=== PATIENT | male | born 1960 | race African-American/Black ===

== ENCOUNTER 2022-03-29 15:32 | Emergency (ER) | payer BC, MEDICARE, SELFPAY ==
[2022-03-29 15:45] VITALS: BP 174/92; PULSE 83; RESP 16; TEMP 37.1; O2SAT 98
--- NOTE | 2022-03-29 15:46 | ED.URI ---
HPI - URI/Sore Throat General Chief Complaint: Upper Respiratory Infection Stated Complaint: wheezing Time Seen by Provider: 03/29/22 15:46 Source: patient Mode of arrival: ambulatory Limitations: no limitations History of Present Illness HPI Narrative: 61-year-old male with history of asthma presents with complaint of wheezing for 3 days. Reports that he had a recent cold last week. States that symptoms have resolved. Has been using his inhalers as prescribed. Today gave himself a breathing treatment prior to arrival. Denies shortness of breath and chest tightness. States just can hear myself wheezing . Patient is talkative and well-appearing. Speaking in full sentences. All systems reviewed and negative except as noted above. Related Data Home Medications Medication Instructions Recorded Confirmed albuterol 03/29/22 amlodipine 03/29/22 Allergies Allergy/AdvReac Type Severity Reaction Status Date / Time aspirin [From Marciano Aspirin] Allergy Unresponsiv Verified 03/29/22 15:43 e codeine Allergy Wheezing Verified 03/29/22 15:43 Review of Systems Review of Systems: CONSTITUTIONAL: Denies fever, chills, or sweats. EYES: Denies visual changes, redness, or discharge. ENT: Denies rhinorrhea, congestion, sore throat, or otalgia. CARDIOVASCULAR: Denies chest pain, palpitations, or edema. RESPIRATORY: Denies cough or dyspnea. Reports wheezing. GASTROINTESTINAL: Denies abdominal pain, nausea, vomiting, or diarrhea. GENITOURINARY: Denies dysuria or hematuria. SKIN: Denies rash or itching. MUSCULOSKELETAL: Denies back pain, joint pain, or myalgia. NEUROLOGIC: Denies headache, numbness, or weakness. PSYCHIATRIC: Denies anxiety or depression. All other systems reviewed are negative, except as documented in HPI. [facility] Comments At time of signature, agree with nursing past medical, surgical, social and family history. There is no relevant family history pertinent to the presenting complaint. Exam Narrative: GENERAL: This is a well-nourished, well-developed patient, in no apparent distress. HEAD: normocephalic, atraumatic. EYES: PERRL. Sclera clear/white. Vision is grossly intact. EARS: External ears normal, auditory canals clear and without drainage, TMs normal without perforation. Hearing grossly intact. NOSE: External nose normal with no obvious nasal discharge, nares without redness, no rhinorrhea. THROAT: Mucous membranes moist, posterior pharynx clear. NECK: Neck supple, non-tender without lymphadenopathy, masses or thyromegaly. CARDIOVASCULAR: Regular rate and rhythm without murmurs, gallops, or rubs. RESPIRATORY: Mild expiratory wheeze to mid and lower aspect of bilateral lung payton. Otherwise clear lung signs. SKIN: warm, Dry, intact with no suspicious lesions or rash, good texture and turgor. NEURO: awake, alert, and oriented to person, place and time. There were no obvious focal neurologic abnormalities. EXTREMITIES: No joint tenderness, effusion, or edema noted. Course Course Level of Care: Express Care Visit Vital Signs Vital signs: Vital Signs Temperature 37.1 C 03/29/22 15:45 Pulse Rate 83 03/29/22 15:45 Respiratory Rate 16 03/29/22 15:45 Blood Pressure 174/92 H 03/29/22 15:45 Pulse Oximetry 98 03/29/22 15:45 Temperature 37.1 C 03/29/22 15:45 Pulse Rate 83 03/29/22 15:45 Respiratory Rate 16 03/29/22 15:45 Blood Pressure 174/92 H 03/29/22 15:45 Pulse Oximetry 98 03/29/22 15:45 Reviewed MDM - URI/Sore Throat MDM Narrative Medical decision making narrative: Patient is aware of diagnosis, understands and agrees to treatment plan. Anticipatory guidance given. Patient agrees to follow-up as directed and is aware of reasons to seek care at the emergency department. Portions of this record may have been created with voice recognition software Patient well-appearing. Has inhalers and neb treatments prescribed from PCP. Needed Combivent inhaler refille
== END 2022-03-29 16:04 | disposition home or self-care (01) ==
PROVIDERS: Emergency Provider Nurse Practitioner Family
DX: J45.901 Unspecified asthma with (acute) exacerbation (principal); I10 Essential (primary) hypertension
CPT/HCPCS: 99213; G0463

== ENCOUNTER 2022-04-06 19:42 | Emergency (ER) | payer BC, MEDICARE, SELFPAY ==
--- NOTE | 2022-04-06 19:49 | ED.URI ---
HPI - URI/Sore Throat General Chief Complaint: Upper Respiratory Infection Stated Complaint: congestion, wheezing Time Seen by Provider: 04/06/22 19:52 Source: patient, RN notes reviewed and old records reviewed Mode of arrival: ambulatory Limitations: no limitations History of Present Illness HPI Narrative: 61-year-old male presents to the [facility] with complaints of congestion and wheezing that started this afternoon. Patient states that he was much better from last week's visit but after using a nose spray and exposed to viruses developed wheezing this afternoon patient originally said that he was out of his inhaler and had not used it in a couple of days. Patient then stated he used it 4 times a day, pulls it out of his pocket and has 68 puffs left. Was seen for the same on March 29, 8 days ago, did not follow-up with primary care Denies any fevers, chest pain, abdominal pain. Related Data Home Medications Medication Instructions Recorded Confirmed albuterol 03/29/22 amlodipine 03/29/22 Allergies Allergy/AdvReac Type Severity Reaction Status Date / Time aspirin [From Marciano Aspirin] Allergy Unresponsiv Verified 04/06/22 20:13 e codeine Allergy Wheezing Verified 04/06/22 20:13 Review of Systems Review of Systems: All systems reviewed & are unremarkable except as noted in HPI and below Constitutional: Constitutional: Reports no additional constitutional complaints, Denies chills and Denies fever(s) Eyes: Eyes: Reports no additional eye complaints ENT: Reports system reviewed and no additional complaints, except as documented Cardiovascular: Cardiovascular: Reports no additional cardiovascular complaints Respiratory: Respiratory: Reports as per HPI, Reports chest congestion, Reports cough (Clear productive), Denies dyspnea and Reports wheezing Gastrointestinal: Gastrointestinal: Reports no additional gastrointestinal complaints Musculoskeletal: Musculoskeletal: Reports no additional musculoskeletal complaints Integumentary/Breasts: Skin/Breast: Reports system reviewed and no additional complaints, except as docu Neurologic: Reports system reviewed and no additional complaints, except as documented Psychiatric: Psychiatric: Reports no additional psychiatric complaints Allergic/Immunologic: Allergic/Immunologic: Reports no additional allergic/immunologic complaints [facility] Past Medical History Medical History (Updated 04/06/22 @ 20:15 by Lyn Guerin APRN) Asthma Hypertension Surgical History Surgical History (Updated 04/06/22 @ 20:13 by Lyn Guerin APRN) No history of previous surgery Social History Social History (Updated 04/06/22 @ 20:13 by Lyn Guerin APRN) Gender identity (if verbalized by the patient): Male Comments At the time of my signature, I reviewed and agree with the nursing past medical, surgical, social, and family history. There is no relevant family history pertinent to the patient complaint. Exam Const: General: healthy appearing, no acute distress and alert Nutritional Appearance: well nourished Orientation/consciousness: patient oriented x3 Limitations: no limitations HENMT: Head: normal to inspection Ears: external ears normal, TM's normal bilaterally and EAC's normal Throat: posterior oropharynx normal and uvula midline Eyes: General: appearance normal, both eyes and all related structures Pupils: Equal, round and reactive pupils present Neck: Neck: normal visual inspection, no lymphadenopathy and no meningeal signs Chest: Chest palpation & inspection: normal inspection of the chest Resp: Effort & Inspection: normal respiratory effort and no use of accessory muscles Auscultation: clear to auscultation bilaterally, no crackles, no rales, no rhonchi and wheezes expiratory wheezes, left lower and right lower Cardio: Rate: regular rate Rhythm: regular rhythm Back/Spine/Pelvis: Cervical Spine: normal cervical lordosis Thoracic/Lumba
[2022-04-06 19:51] VITALS: BP 156/92; PULSE 86; RESP 16; TEMP 37.2; O2SAT 100
== END 2022-04-06 20:09 | disposition home or self-care (01) ==
PROVIDERS: Emergency Provider Nurse Practitioner
DX: J45.909 Unspecified asthma, uncomplicated (principal); I10 Essential (primary) hypertension
CPT/HCPCS: 99213; G0463

== ENCOUNTER 2022-06-03 10:00 | Emergency (ER) | payer BC, MEDICARE, SELFPAY ==
[2022-06-03 10:09] VITALS: BP 164/98; PULSE 82; RESP 16; TEMP 36.2; O2SAT 97
--- NOTE | 2022-06-03 10:09 | ED.URI ---
HPI - URI/Sore Throat General Chief Complaint: Upper Respiratory Infection Stated Complaint: WHEEZING Source: patient Mode of arrival: ambulatory Limitations: no limitations History of Present Illness HPI Narrative: 61 y/o male with history of asthma presented for c/o wheezing for 3 days after having 'a virus.' Endorses sinus pressure and congestion with post nasal drainage and mild nausea. Denies sob, cough, vomiting, fatigue, fever or chills. Taking nuha and nasal spray occasionally. Says he uses albuterol and nebulizer machine as needed for symptoms. Related Data Home Medications Medication Instructions Recorded Confirmed amlodipine 10 mg tablet 10 mg PO DAILY 06/03/22 06/03/22 Allergies Allergy/AdvReac Type Severity Reaction Status Date / Time aspirin [From [place] Aspirin] Allergy Unresponsiv Verified 06/03/22 10:11 e codeine Allergy Wheezing Verified 06/03/22 10:11 Review of Systems Review of Systems: CONSTITUTIONAL: Denies body aches, fever, chills, or sweats. EYES: Denies visual changes, redness, or discharge. ENT: Denies sore throat, or otalgia. CARDIOVASCULAR: Denies chest pain, palpitations, or edema. RESPIRATORY: Reports wheezing. GASTROINTESTINAL: Denies abdominal pain, vomiting, or diarrhea. GENITOURINARY: Denies dysuria or hematuria. SKIN: Denies rash, itching, or wounds. MUSCULOSKELETAL: Denies back pain, joint pain, or myalgia. NEUROLOGIC: Denies headache, numbness, tingling, or weakness. All systems reviewed & are unremarkable except as noted in HPI and below PMFSH Past Medical History Medical History Asthma Hypertension Surgical History Surgical History No history of previous surgery Social History Social History Gender identity (if verbalized by the patient): Male Comments At time of signature, I have reviewed and agree with nursing past medical, surgical, social and family history unless otherwise noted. Please see nursing chart for further information. There is no relevant family history pertinent to the presenting complaint Exam Narrative: GENERAL: Well-appearing, in no acute distress. EYES: EOMI. No redness or drainage. Conjunctivae normal. ENT: Mucous membranes pink and moist. No rhinorrhea. TMs normal bilaterally. Throat normal. Uvula midline. CHEST: No respiratory distress. Expiratory Wheezing to all payton. HEART: Regular rate and rhythm. No murmur appreciated. ABDOMEN: Soft, nontender, nondistended, normal active bowel sounds. SKIN: Warm, dry, no rash. Capillary refill normal. Normal skin turgor. NEURO: Alert and oriented x3. Course Course Emergency Course: Patient is aware of diagnosis, understands and agrees to treatment plan. Anticipatory guidance given. Patient agrees to follow-up as directed and is aware of reasons to seek care at the emergency department. Portions of this record may have been created with voice recognition software Level of Care: Express Care Visit MDM - URI/Sore Throat MDM Narrative Medical decision making narrative: Patient states he has plenty of puffs left on the albuterol inhaler and medication for neb machine. No distress. VSS. Exp wheezing on exam, will give Rx steroid. Advised supportive measures and signs/symptoms to go to the ER. Pt is appropriate for outpt treatment and f/u. Differential Diagnosis Differential diagnosis: Likely upper respiratory infection, sinusitis, viral infection, bronchitis and other (copd, asthma, pneumonia) Discharge Plan Discharge Clinical Impression: Asthma exacerbation Patient Disposition: Home, Self-Care Condition: Stable Instructions: Wheezing (ED) Additional Instructions: Your blood pressure was elevated today (above 120/80) recommend close follow up with your primary care provider. Call today to marisa
[2022-06-03 10:13] VITALS: BP 164/98; PULSE 82; RESP 16; TEMP 36.2; O2SAT 97
== END 2022-06-03 10:25 | disposition home or self-care (01) ==
PROVIDERS: Emergency Provider Nurse Practitioner Family
DX: J45.901 Unspecified asthma with (acute) exacerbation (principal); I10 Essential (primary) hypertension
CPT/HCPCS: 99213; G0463

== ENCOUNTER 2022-06-25 22:14 | Emergency (ER) | payer BC, MEDICARE, SELFPAY ==
[2022-06-25] VITALS (9 sets, daily range): BP systolic 180–221; BP diastolic 11–100; PULSE 98; RESP 24; TEMP 36.8; O2SAT 96–100
--- NOTE | ~2022-06-25 | XR_ITS ---
EXAMINATION: XR chest 2V DATE: 06/25/2022 23:07 INDICATION: Shortness of breath TECHNIQUE: PA and lateral views of the chest are obtained. COMPARISON: None available FINDINGS: The lungs are free of acute opacities. No pleural effusion or pneumothorax. The cardiomedia stinal silhouette is normal. There is mild thoracic spondylosis. IMPRESSION: 1. No acute cardiopulmonary abnormality. Reviewed, dictated and finalized at location D.
--- NOTE | 2022-06-25 22:20 | ECG_ITS ---
Measurements Intervals Dante Rate: 89 P: 42 MS: 173 QRS: -7 QRSD: 91 T: 46 QT: 346 QTc: 421 Interpretive Statements SINUS RHYTHM NORMAL ECG NO PREVIOUS ECG AVAILABLE FOR COMPARISON Electronically Signed On 06-26-2022 13:56:04 CDT by Bassam Barboza M.D.
[2022-06-25 22:55] LABS: Basophils Absolute Auto 0.1 K/mm3 (0.0-0.1); Basophils Percent Auto 1.1 % (0.2-1.2); Eosinophils Absolute Auto 0.4 K/mm3 (0-0.3); Eosinophils Percent Auto 3.4 % (0-4.4); Hematocrit 46.7 % (42.0-52.0); Hemoglobin 15.7 g/dL (14.0-18.0); Immature Granulocyte Absolute 0.16 K/mm3 (0.00-0.031); Immature Granulocyte Percent A 1.3 % (0-0.5); Lymphocytes Percent Auto 29.7 % (18.3-44.2); Mean Corpuscular HGB Conc 33.6 g/dl (32-36); Mean Corpuscular Hemoglobin 30.3 pg (26-34); Mean Corpuscular Volume 90.2 fl (80-100); Mean Platelet Volume 9.2 fl (7.4-10.4); Monocytes Percent Auto 7.7 % (2.6-8.5); Neutrophils Absolute Auto 7.3 K/mm3 (1.3-6.7); Neutrophils Percent Auto 56.8 % (45.5-73.1); Platelet Count Result 311 k/mm3 (150-375); Red Blood Count 5.18 M/mm3 (4.6-6.20); Red Cell Distribution Width 13.5 % (11.5-14.5); White Blood Count 12.8 K/mm3 (4.5-10.0)
[2022-06-25 23:04] LABS: Alanine Aminotransferase 34 U/L (6-50); Albumin Level 4.4 g/dL (3.5-5.1); Alkaline Phosphatase 99 U/L (38-126); Anion Gap 9 mmol/L (8-16); Aspartate Amino Transferase 32 U/L (17-59); Bilirubin,Total 0.7 mg/dL (0.2-1.3); Blood Urea Nitrogen 12 mg/dL (9-20); Carbon Dioxide 28 mmol/L (22-30); Chloride 99 mmol/L (98-107); Estimated CRCL calculation 78 ml/min; Estimated Glomerular Filt Rate > 60; Glucose 116 mg/dL (65-110); Potassium 3.3 mmol/L (3.4-5.0); Sodium 136 mmol/L (137-145)
--- NOTE | 2022-06-25 23:05 | ED.ASTHMA ---
HPI - Asthma General Chief Complaint: Shortness of Breath/Dyspnea <Julienne Bermeo PA-C - Last Filed: 06/26/22 02:03> Stated Complaint: ASTHMA <PEG Keating Last Filed: 06/26/22 02:03> Time Seen by Provider: 06/25/22 23:05 <PEG Keating Last Filed: 06/26/22 02:03> History of Present Illness HPI Narrative: Patient is a 61-year-old male with a history of asthma here for evaluation of dyspnea today. Patient states that he has had a tough day , and has been short of breath with minimal exertion in addition to at rest. He has attempted his albuterol nebulizer treatments at home with only minimal relief of his wheezing. States this feels similar to previous asthma exacerbations. Patient has been coughing with rhinorrhea over the past several days which he has attributed to a viral illness. denies any chest pain, leg swelling, fevers, chills. Patient tells me that he has had a negative cardiac catheterization in the past year. <PEG Keating Last Filed: 06/26/22 02:03> Related Data Home Medications: Home Medications Medication Instructions Recorded Confirmed amlodipine 10 mg tablet 10 mg PO DAILY 06/03/22 06/03/22 <PEG Keating Last Filed: 06/26/22 02:03> Allergies/Adverse Reactions: Allergies Allergy/AdvReac Type Severity Reaction Status Date / Time aspirin [From Marciano Aspirin] Allergy Unresponsiv Verified 06/03/22 10:11 e codeine Allergy Wheezing Verified 06/03/22 10:11 <PEG Keating Last Filed: 06/26/22 02:03> Review of Systems Review of Systems: Gen: Denies fevers or chills Eyes: Denies eye pain or visual change ENT: Reports congestion. Respiratory: Reports wheezing and cough. CV: Denies chest pain or palpitations GI: Denies abdominal pain nausea, emesis or diarrhea : denies burning, urgency, frequency or hematuria Musculoskeletal: Denies back pain or muscle pain Neuro: Denies numbness, tingling, weakness or focal weakness Skin: Denies rash Except as documented, all other systems reviewed and negative <Julienne Bermeo PA-C - Last Filed: 06/26/22 02:03> [facility] Past Medical History Medical History: Medical History Asthma Hypertension <Julienne Bermeo PA-C - Last Filed: 06/26/22 02:03> Surgical History Surgical History: Surgical History No history of previous surgery <Julienne Bermeo PA-C - Last Filed: 06/26/22 02:03> Social History Social History: Social History Gender identity (if verbalized by the patient): Male <Julienne Bermeo PA-C - Last Filed: 06/26/22 02:03> Exam Narrative: APPEARANCE: Well appearing, no pain in distress, well-nourished. Head: Normocephalic and atraumatic. EYES: PERRLA/EOMI, conjunctivae clear NOSE: No nasal drainage EARS: External ear normal in appearance THROAT: Oropharynx is clear. Mucous membranes are moist. NECK: Supple. No adenopathy, no masses. RESPIRATORY: Speaking in full sentences, no respiratory distress. Expiratory wheezes throughout all lung payton auscultated. CARDIOVASCULAR: Regular rate and rhythm without murmurs, rubs, or gallops. ABDOMINAL: Normoactive bowel sounds. Soft, nontender, nondistended. No rebound tenderness or guarding. MUSCULOSKELETAL: Extremities are warm and well-perfused. Moves all extremities well. No edema. NEURO: Normal speech. No focal neurologic deficits. SKIN: Skin is warm and dry. No rashes. PSYCHIATRIC: Normal affect/mood. <Julienne Bermeo PA-C - Last Filed: 06/26/22 02:03> Course BRIDGES SUPERVISOR/PA Physician Supervision I discussed this patient with MADISON Bermeo. I agree with the assessment and plan as documented. <Castro Tatum MD - Last Filed: 06/26/22 11:28> Vi
[2022-06-25] MEDS: predniSONE 20 MG TABLET 60 MG PO (23:51)
[2022-06-26] VITALS (11 sets, daily range): BP systolic 188–191; BP diastolic 91–95; PULSE 76–101; RESP 16–24; O2SAT 96–100
[2022-06-26] MEDS: ALBUTEROL SULFATE NEB 2.5 MG/3 ML INH 5 MG INHALATION ×3 (00:03→01:08)
[2022-06-26 00:14] LABS: Alveolar/Arterial O2 Gradient 35.1 mmHg; Base Excess ABG 1.5 mEq/l (+/-2.0); Fractional Inspired Oxygen 21 %; HCO3 ABG 25.1 mEq/l (22.0-26.0); Oxygen Saturation ABG 95.1 % (95.0-100.0); Oxyhemoglobin 93.9 % THb (90.0-100.0); PCO2 ABG 36.4 mmHg (35.0-45.0); PO2 FiO2 Ratio Arterial Blood 3.38 %; Total Hemoglobin 15.9 g/dL (12.0-18.0); pH ABG 7.456 (7.350-7.450)
[2022-06-26 00:46] LABS: NT Pro B Type Natriuretic Pept 29 pg/mL (5-100)
[2022-06-26 03:48] LABS: SARS-CoV-2 RNA PCR Negative
== END 2022-06-26 02:05 | disposition home or self-care (01) ==
PROVIDERS: Physician Assistant; Emergency Provider Preventive Medicine Aerospace Medicine
DX: J45.901 Unspecified asthma with (acute) exacerbation (principal); I10 Essential (primary) hypertension; Z20.822 Contact with and (suspected) exposure to COVID-19
CPT/HCPCS: 36415; 36600; 71046; 80053; 82805; 83735; 83880; 85025; 93005; 94640; 99285; C9803; J7512; U0003; U0005

== ENCOUNTER 2022-06-29 21:17 | Emergency (ER) | payer BC, MEDICARE, SELFPAY ==
[2022-06-29 21:19] VITALS: BP 245/100; PULSE 113; RESP 22; TEMP 36.2; O2SAT 98
--- NOTE | 2022-06-29 23:07 | PC.NURSE ---
Pt came to Triage reporting he is leaving due to the wait time.
== END 2022-06-29 23:07 | disposition left against medical advice (07) ==
DX: R06.02 Shortness of breath (principal)
CPT/HCPCS: 99199

== ENCOUNTER 2022-07-25 20:43 | Emergency (ER) | payer BC, MEDICARE, SELFPAY ==
[2022-07-25] VITALS (8 sets, daily range): BP systolic 153–203; BP diastolic 80–92; PULSE 79–97; RESP 17–18; TEMP 36.7; O2SAT 98–99
--- NOTE | ~2022-07-25 | XR_ITS ---
EXAMINATION: XR chest 2V Exam Date/Time: 07/25/2022 21:10 WATERPROOFING SUPERVISOR HISTORY: SOB, HX ASTHMA, HX HTN Comparison: 06/25/2022. RESULT: Lines, tubes, and devices: None. Lungs and pleura: No focal consolidation or pneumothorax. Mild peribronchial cuffing. Unchanged ramsey r fissure fluid/thickening. Cardiomediastinal silhouette: Stable. Other: No acute osseous or upper abdominal finding. IMPRESSION: Pulmonary opacities may represent bronchiolitis, as can be seen with atypical infection, asthma, aspi ration, and small airways disease. Reviewed, dictated and finalized at location K. RPROOFING SUPERVISOR IMPRESSION: Pulmonary opacities may represent bronchiolitis, as can be seen with atypical i nfection, asthma, aspiration, and small airways disease.
[2022-07-25] MEDS: METOCLOPRAMIDE HCL INJ 10 MG/2 ML VIAL IV PUSH (21:08)
[2022-07-25] MEDS: MAG HYDROX/AL HYDROX/SIMETH 30 ML UDC PO (21:08)
[2022-07-25 21:14] LABS: Basophils Absolute Auto 0.1 K/mm3 (0.0-0.1); Basophils Percent Auto 1.1 % (0.2-1.2); Eosinophils Absolute Auto 0.4 K/mm3 (0-0.3); Hematocrit 43.6 % (42.0-52.0); Hemoglobin 14.9 g/dL (14.0-18.0); Immature Granulocyte Absolute 0.09 K/mm3 (0.00-0.031); Immature Granulocyte Percent A 0.8 % (0-0.5); Lymphocytes Absolute Auto 2.77 K/mm3 (0.9-3.2); Lymphocytes Percent Auto 25.5 % (18.3-44.2); Mean Corpuscular HGB Conc 34.2 g/dl (32-36); Mean Corpuscular Hemoglobin 30.8 pg (26-34); Mean Corpuscular Volume 90.1 fl (80-100); Mean Platelet Volume 10.4 fl (7.4-10.4); Monocytes Percent Auto 9.5 % (2.6-8.5); Neutrophils Absolute Auto 6.4 K/mm3 (1.3-6.7); Neutrophils Percent Auto 59.1 % (45.5-73.1); Platelet Count Result 230 k/mm3 (150-375); Red Blood Count 4.84 M/mm3 (4.6-6.20); Red Cell Distribution Width 13.7 % (11.5-14.5); White Blood Count 10.9 K/mm3 (4.5-10.0)
[2022-07-25 21:19] LABS: Platelet Estimate Adequate (Adequate)
[2022-07-25 21:20] LABS: Schistocytes None Seen (NORMAL)
--- NOTE | 2022-07-25 21:41 | ED.ASTHMA ---
HPI - Asthma General Chief Complaint: Asthma <Harjinder Glover MD - Last Filed: 07/26/22 12:43> Stated Complaint: Wheezing, shortness of breath <Harjinder Glover MD - Last Filed: 07/26/22 12:43> Time Seen by Provider: 07/25/22 20:45 <Harjinder Glover MD - Last Filed: 07/26/22 12:43> History of Present Illness HPI Narrative: 61-year-old male history of hypertension and asthma presented to the emergency department for evaluation of worsening shortness of breath today. Patient states he has been using his albuterol at home with no significant improvement. Patient denies any chest pain. Patient states he has been having some intermittent upset stomach. <Harjinder Glover MD - Last Filed: 07/26/22 12:43> Related Data Home Medications: Home Medications Medication Instructions Recorded Confirmed amlodipine 10 mg tablet 10 mg PO DAILY 06/03/22 06/03/22 <Harjinder Glover MD - Last Filed: 07/26/22 12:43> Allergies/Adverse Reactions: Allergies Allergy/AdvReac Type Severity Reaction Status Date / Time aspirin [From Marciano Aspirin] Allergy Unresponsiv Verified 07/25/22 20:51 e codeine Allergy Wheezing Verified 07/25/22 20:51 <Harjinder Glover MD - Last Filed: 07/26/22 12:43> Review of Systems Review of Systems: CONSTITUTIONAL: Denies fever, chills, or sweats. EYES: Denies visual changes, redness, or discharge. ENT: Denies rhinorrhea, congestion, sore throat, or otalgia. CARDIOVASCULAR: Denies chest pain, palpitations, or edema. RESPIRATORY: See HPI GASTROINTESTINAL: Denies abdominal pain, nausea, vomiting, or diarrhea. GENITOURINARY: Denies dysuria or hematuria. SKIN: Denies rash or itching. MUSCULOSKELETAL: Denies back pain, joint pain, or myalgia. NEUROLOGIC: Denies headache, numbness, or weakness. <Harjinder Glover MD - Last Filed: 07/26/22 12:43> [facility] Past Medical History Medical History: Medical History Asthma Hypertension <Harjinder Glover MD - Last Filed: 07/26/22 12:43> Surgical History Surgical History: Surgical History No history of previous surgery <Harjinder Glover MD - Last Filed: 07/26/22 12:43> Social History Social History: Social History Gender identity (if verbalized by the patient): Male <Harjinder Glover MD - Last Filed: 07/26/22 12:43> Exam Narrative: APPEARANCE: Well appearing, no pain, no distress, well-nourished. HEAD: normocephalic, atraumatic. EYES: PERRLA/EOMI, conjunctivae clear. NOSE: Normal no drainage THROAT: Pharynx clear, no exudate. NECK: Supple. No adenopathy, no masses. RESPIRATORY: Airway patent, respirations nonlabored. Clear to auscultation bilaterally, no rales, rhonchi, wheezing. CARDIOVASCULAR: Regular rate and rhythm without murmurs rubs or gallops. ABDOMINAL: Soft, nontender, nondistended, normal bowel sounds MUSCULOSKELETAL: Moves all extremities. Strength/ROM intact, No edema, No calf tenderness. NEURO: Alert. Cranial nerves II through XII intact. Grossly intact SKIN: Warm, dry. Normal Color <Harjinder Glover MD - Last Filed: 07/26/22 12:43> Course Course Emergency Course: Patient is feeling much better at this time and would like to go home <Gregory Harris MD - Last Filed: 07/25/22 22:36> Vital Signs Vital signs: Vital Signs Temperature 98.1 F 07/25/22 20:46 Pulse Rate 97 07/25/22 20:46 Respiratory Rate 17 07/25/22 20:46 Blood Pressure 203/89 H 07/25/22 20:46 Pulse Oximetry 98 07/25/22 20:46 Oxygen Delivery Room Air 07/25/22 20:46 Temperature 98.1 F 07/25/22 20:46 Pulse Rate 79 07/25/22 22:41 Respiratory Rate 18 07/25/22 22:41 Blood Pressure 155/80 H 07/25/22 22:41 Pulse Oximetry 99 11/19/22 22:41 Oxygen Delivery Room Air 07/25/22 22:12
[2022-07-25 21:44] LABS: Influenza A QL RT-PCR Negative (Negative); Influenza B QL RT-PCR Negative (Negative); SARS-CoV-2 RNA PCR Negative
[2022-07-25] MEDS: ALBUTEROL SULFATE NEB 2.5 MG/3 ML INH 5 MG INHALATION (21:48)
[2022-07-25 21:50] LABS: Alanine Aminotransferase 28 U/L (6-50); Albumin Level 4.2 g/dL (3.5-5.1); Alkaline Phosphatase 79 U/L (38-126); Anion Gap 10 mmol/L (8-16); Aspartate Amino Transferase 30 U/L (17-59); Bilirubin,Total 0.7 mg/dL (0.2-1.3); Blood Urea Nitrogen 11 mg/dL (9-20); Carbon Dioxide 26 mmol/L (22-30); Chloride 98 mmol/L (98-107); Estimated Glomerular Filt Rate > 60; Glucose 100 mg/dL (65-110); Potassium 3.1 mmol/L (3.4-5.0); Sodium 134 mmol/L (137-145)
[2022-07-25] MEDS: POTASSIUM CHLORIDE 20 MEQ PACKET (FOR LIQUID) PO (22:02)
[2022-07-25] MEDS: AZITHROMYCIN 250 MG TABLET 500 MG PO (22:02)
[2022-07-25] MEDS: predniSONE 40 MG, predniSONE 10 MG 50 MG PO (22:02)
== END 2022-07-25 22:43 | disposition home or self-care (01) ==
PROVIDERS: Emergency Provider Emergency Medicine
DX: J45.901 Unspecified asthma with (acute) exacerbation (principal); I10 Essential (primary) hypertension; Z20.822 Contact with and (suspected) exposure to COVID-19
CPT/HCPCS: 36415; 71046; 80053; 85025; 87636; 94640; 96374; 99284; A9270; J2765; J7512

== ENCOUNTER 2022-08-05 15:39 | Emergency (ER) | payer BC, MEDICARE, SELFPAY ==
--- NOTE | ~2022-08-05 | XR_ITS ---
EXAMINATION: XR chest 2V Exam Date/Time: 08/05/2022 16:28 LIABILITY ANALYST HISTORY: WHEEZING Comparison: 07/25/2022. RESULT: Lines, tubes, and devices: None. Lungs and pleura: Mild peribronchial cuffing. Unchanged minor fissure thickening. Calcified right jackie ng granuloma and hilar lymph node. Cardiomediastinal silhouette: Stable. Other: No acute osseous or upper abdominal finding. IMPRESSION: Unchanged pulmonary opacities, which may represent bronchiolitis, as can be seen with atypical infect ion, asthma, aspiration, and small airways disease. Reviewed, dictated and finalized at location K. ILITY ANALYST IMPRESSION: Unchanged pulmonary opacities, which may represent bronchiolitis, as can be see n with atypical infection, asthma, aspiration, and small airways disease.
--- NOTE | 2022-08-05 15:43 | ED.SOB ---
HPI - SOB/Dyspnea General Chief Complaint: Shortness of Breath/Dyspnea Stated Complaint: WHEEZING Time Seen by Provider: 08/05/22 16:15 Source: patient and RN notes reviewed Mode of arrival: ambulatory Limitations: no limitations History of Present Illness HPI Narrative: 61-year-old male presents with concern for wheezing and shortness of breath for 1 week. He reports he last used his nebulizer this morning, he has been using it about every 6-7 hours, he has been using his inhaler and between. Patient was treated 11 days ago for the same symptoms with prednisone for 5 days Z-Roddy. He reports his symptoms improved briefly but then he got ?virus? and now his symptoms are exacerbated. Patient has been treated for asthma exacerbation approximately once monthly with steroids and antibiotics. Patient reports he has a primary doctor who prescribes his albuterol and his nebulizer, he has a recent prescription for Combivent. He does not take antihistamines because they dry him out. He reports some runny nose, stuffy nose. Denies fever, aches, chills, sweats. MD elicited complaint: shortness of breath Related Data Home Medications Medication Instructions Recorded Confirmed amlodipine 10 mg tablet 10 mg PO DAILY 06/03/22 08/05/22 albuterol sulfate 90 mcg/actuation 2 puff inhalation Q6-8H PRN 08/05/22 08/05/22 aerosol inhaler Wheezing ipratropium 0.5 mg-albuterol 3 mg 3 ml inhalation Q6-8H PRN Wheezing 08/05/22 08/05/22 (2.5 mg base)/3 mL nebulization soln Allergies Allergy/AdvReac Type Severity Reaction Status Date / Time aspirin [From Marciano Aspirin] Allergy Unresponsiv Verified 08/05/22 16:18 e codeine Allergy Wheezing Verified 08/05/22 16:18 Review of Systems Review of Systems: CONSTITUTIONAL: Denies malaise, chills, sweats, or fever. EYES: Denies visual changes, redness, or discharge. ENT: Reports rhinorrhea, congestion. Denies sinus pain, otalgia and sore throat. CARDIOVASCULAR: Denies chest pain, palpitations, or edema. RESPIRATORY: Reports cough, wheezing, dyspnea. GASTROINTESTINAL: Denies abdominal pain, nausea, vomiting, diarrhea SKIN: Denies rash or itching. MUSCULOSKELETAL: Denies myalgia. NEUROLOGIC: Reports headache. All systems reviewed & are unremarkable except as noted in HPI and below PMFSH Past Medical History Medical History Asthma Hypertension Surgical History Surgical History No history of previous surgery Social History Social History Gender identity (if verbalized by the patient): Male Comments At time of signature, agree with nursing past medical, surgical, social and family history. There is no relevant family history pertinent to the presenting complaint Exam Narrative: GENERAL: Well-appearing, well-nourished, and in no acute distress. HEAD: Normocephalic EYES: PERRLA, conjunctivae clear ENT: Nares clear, turbinates edematous and erythematous, clear discharge. Mucous membranes moist. TM pearly colón with dull light reflex bilaterally; no tragal tenderness. Oropharynx not erythematous without lesions. Tonsils not enlarged and without exudate, no drooling, no hoarseness, no trismus, uvula midline. NECK: Supple. No lymphadenopathy CHEST: Scattered expiratory wheeze, slightly diminished in the bases without rhonchi, breath sounds equal. No rhonchi, rales, or stridor. No respiratory distress, speaks in full sentences. HEART: Regular rate and rhythm. No murmur heard. SKIN: Warm, dry, no rash. NEURO: Alert and oriented x3. PSYCH: Normal mood and affect Course Course Emergency Course: Advised patient the importance of following up with his primary care provider for evaluation of his asthma care plan, he has been on the antibiotics and steroids at least monthly since April. Patient is aware of diagnosis
[2022-08-05 15:47] VITALS: BP 178/88; PULSE 77; RESP 16; TEMP 35.9; O2SAT 100
== END 2022-08-05 17:16 | disposition home or self-care (01) ==
PROVIDERS: Emergency Provider Nurse Practitioner
DX: J45.901 Unspecified asthma with (acute) exacerbation (principal); Z20.822 Contact with and (suspected) exposure to COVID-19; I10 Essential (primary) hypertension
CPT/HCPCS: 71046; 87420; 87426; 87804; 99213; C9803; G0463

== ENCOUNTER 2022-08-29 22:10 | Emergency (ER) | payer BC, MEDICARE, SELFPAY ==
[2022-08-29 22:11] VITALS: BP 196/90; PULSE 95; RESP 20; TEMP 36.8; O2SAT 97
[2022-08-29 23:48] VITALS: BP 149/100; PULSE 109; RESP 24; O2SAT 97
--- NOTE | 2022-08-29 23:51 | PC.NURSE ---
Pt states im going to go grab a soda and come back. Itll make me feel better . Pt educated on why he should stay in ED until being seen by provider. pt ambulated out of ED with steady gait, in no obvious distress.
== END 2022-08-29 23:51 | disposition left against medical advice (07) ==
LOC: ANHED 08-30 06:43
DX: R06.02 Shortness of breath (principal); J45.909 Unspecified asthma, uncomplicated
CPT/HCPCS: 99199

== ENCOUNTER 2022-09-06 11:21 | Emergency (ER) | payer BC, MEDICARE, SELFPAY ==
--- NOTE | 2022-09-06 11:38 | ED.URI ---
HPI - URI/Sore Throat General Chief Complaint: Upper Respiratory Infection Stated Complaint: WHEEZING Time Seen by Provider: 09/06/22 12:20 Source: patient Mode of arrival: ambulatory Limitations: no limitations History of Present Illness HPI Narrative: Lowell is a 61-year-old male patient presenting to the clinic today with complaints of wheezing. He reports he has been wheezing for approximately 3 days. He does report some mild shortness of breath. SpO2 is 100% on room air and he is able to speak in full sentences. History of asthma MD elicited complaint: other (Wheezing, cough, shortness of breath) Related Data Home Medications Medication Instructions Recorded Confirmed amlodipine 10 mg tablet 10 mg PO DAILY 06/03/22 09/06/22 albuterol sulfate 90 mcg/actuation 2 puff inhalation Q6-8H PRN 08/05/22 09/06/22 aerosol inhaler Wheezing ipratropium 0.5 mg-albuterol 3 mg 3 ml inhalation Q6-8H PRN Wheezing 08/05/22 09/06/22 (2.5 mg base)/3 mL nebulization soln Allergies Allergy/AdvReac Type Severity Reaction Status Date / Time aspirin [From Marciano Aspirin] Allergy Unresponsiv Verified 09/06/22 11:29 e codeine Allergy Wheezing Verified 09/06/22 11:29 Review of Systems Review of Systems: Pertinent positives per HPI. Patient denies any fever, chills, rash, headache, visual changes, dizziness, chest pain, palpitations, nausea, vomiting, diarrhea, constipation, abdominal pain, or any urinary issues. PMFSH Past Medical History Medical History Asthma Hypertension Surgical History Surgical History No history of previous surgery Social History Social History Gender identity (if verbalized by the patient): Male Comments At the time of my signature, I reviewed and agree with the nursing past medical, surgical, social, and family history. There is no relevant family history pertinent to the patient complaint. Exam Narrative: General: Well-developed, well nourished, in no apparent distress Head: Normocephalic, atraumatic Eyes: Pupils equally round and reactive to light bilaterally, EOM intact, sclera and conjunctive clear, no discharge, lids normal Ears: TMs intact and clear, ear canals clear, no drainage, grossly hearing normal. Nose: Nares patent, no discharge, no inflammation, no sinus tenderness. Mouth: Oral pharynx without lesions or masses, good dentition, MMM. Neck: Supple, trachea midline, no enlargement of anterior or posterior cervical nodes, no thyroid masses or goiter palpable. Cardio: Regular rate and rhythm, s1 and s2 normal, no murmur appreciated. Resp: Expiratory wheezing throughout lung payton, no rhonchi, rales, or rubs Course Course Emergency Course: Portions of this record may have been created with voice recognition software. Level of Care: Express Care Visit Vital Signs Vital signs: Vital Signs Temperature 36.8 C 09/06/22 11:46 Pulse Rate 83 09/06/22 11:46 Respiratory Rate 16 09/06/22 11:46 Blood Pressure 149/80 H 09/06/22 11:46 Pulse Oximetry 100 09/06/22 11:46 Temperature 36.8 C 09/06/22 11:46 Pulse Rate 83 09/06/22 11:46 Respiratory Rate 16 09/06/22 11:46 Blood Pressure 149/80 H 09/06/22 11:46 Pulse Oximetry 100 09/06/22 11:46 Oxygen Delivery Room Air 09/06/22 12:05 Vital signs reviewed MDM - URI/Sore Throat MDM Narrative Medical decision making narrative: At the time of visit patient is resting comfortably on exam table. Expiratory wheezing throughout lung payton. I suspect patient has bronchitis/asthma exacerbation. Prescription for prednisone was sent to the pharmacy. Patient already has an albuterol inhaler at home. Supportive measures were discussed with the patient he voiced understanding discharge instructions agrees to treatment
[2022-09-06 11:46] VITALS: BP 149/80; PULSE 83; RESP 16; TEMP 36.8; O2SAT 100
== END 2022-09-06 12:25 | disposition home or self-care (01) ==
PROVIDERS: Emergency Provider Nurse Practitioner Family
DX: J40 Bronchitis, not specified as acute or chronic (principal); J45.909 Unspecified asthma, uncomplicated; I10 Essential (primary) hypertension
CPT/HCPCS: 99213; G0463

== ENCOUNTER 2022-10-27 08:46 | Emergency (ER) | payer BC, MEDICARE, SELFPAY ==
[2022-10-27 08:59] VITALS: BP 185/94; PULSE 70; RESP 18; TEMP 36.3; O2SAT 98
--- NOTE | 2022-10-27 08:59 | ED.URI ---
HPI - URI/Sore Throat General Chief Complaint: Upper Respiratory Infection Stated Complaint: wheezing Time Seen by Provider: 10/27/22 08:59 Source: patient and RN notes reviewed Mode of arrival: ambulatory Limitations: no limitations History of Present Illness HPI Narrative: 61-year-old male with a history of asthma presents with concern for one-week history of head and sinus congestion, wheezing, runny nose. He denies fever, sore throat. Reports intermittent shortness of breath. MD elicited complaint: cough Related Data Home Medications Medication Instructions Recorded Confirmed amlodipine 10 mg tablet 10 mg PO DAILY 06/03/22 10/27/22 albuterol sulfate 90 mcg/actuation 2 puff inhalation Q6-8H PRN 08/05/22 10/27/22 aerosol inhaler Wheezing ipratropium 0.5 mg-albuterol 3 mg 3 ml inhalation Q6-8H PRN Wheezing 08/05/22 10/27/22 (2.5 mg base)/3 mL nebulization soln Allergies Allergy/AdvReac Type Severity Reaction Status Date / Time aspirin [From Marciano Aspirin] Allergy Unresponsiv Verified 10/27/22 08:54 e codeine Allergy Wheezing Verified 10/27/22 08:54 Review of Systems Review of Systems: CONSTITUTIONAL: Denies malaise, chills, sweats, or fever. EYES: Denies visual changes, redness, or discharge. ENT: Reports rhinorrhea, congestion, sinus pain. Denies otalgia and sore throat. CARDIOVASCULAR: Denies chest pain, palpitations, or edema. RESPIRATORY: Reports cough and a wheezing, situational dyspnea. GASTROINTESTINAL: Denies abdominal pain, nausea, vomiting, diarrhea SKIN: Denies rash or itching. MUSCULOSKELETAL: Denies myalgia. NEUROLOGIC: Denies headache. All systems reviewed & are unremarkable except as noted in HPI and below PMFSH Past Medical History Medical History Asthma Hypertension Surgical History Surgical History No history of previous surgery Social History Social History Gender identity (if verbalized by the patient): Male Comments At time of signature, agree with nursing past medical, surgical, social and family history. There is no relevant family history pertinent to the presenting complaint Exam Narrative: GENERAL: Well-appearing, well-nourished, and in no acute distress. HEAD: Normocephalic EYES: PERRLA, conjunctivae clear ENT: Nares clear, turbinates edematous and erythematous, green discharge. Mucous membranes moist. TM pearly colón with dull light reflex bilaterally; no tragal tenderness. Oropharynx not erythematous without lesions. Tonsils not enlarged and without exudate, no drooling, no hoarseness, no trismus, uvula midline. NECK: Supple. No lymphadenopathy CHEST: Expiratory and expiratory wheeze throughout, lung sounds equal. No rhonchi, rales, or stridor. No respiratory distress, speaks in full sentences. HEART: Regular rate and rhythm. No murmur heard. SKIN: Warm, dry, no rash. NEURO: Alert and oriented x3. PSYCH: Normal mood and affect Course Course Emergency Course: Patient's pharmacy records indicate he has been on antibiotics and steroids at least once monthly for the past 6 months. I discussed this with patient and advised him against to see his visual education director in her primary care for re-evaluation of his asthma action plan to decrease his asthma exacerbations. Patient reports he has an appointment, but it is not for ?a couple of months? Patient is aware of diagnosis, understands and agrees to treatment plan. Anticipatory guidance given. Patient agrees to follow-up as directed and is aware of reasons to seek care at the emergency department. Portions of this record may have been created with voice recognition software Level of Care: Express Care Visit Vital Signs Vital signs: Reviewed. MDM - URI/Sore Throat MDM Narrative Medical decision making narrative: Differential diag
== END 2022-10-27 09:22 | disposition home or self-care (01) ==
PROVIDERS: Emergency Provider Nurse Practitioner
DX: R06.2 Wheezing (principal); J32.9 Chronic sinusitis, unspecified; J45.909 Unspecified asthma, uncomplicated; I10 Essential (primary) hypertension
CPT/HCPCS: 99213; G0463

== ENCOUNTER 2023-01-07 17:32 | Emergency (ER) | payer BC, MEDICARE, SELFPAY ==
--- NOTE | 2023-01-07 17:41 | ED.URI ---
HPI - URI/Sore Throat General Chief Complaint: Upper Respiratory Infection Stated Complaint: wheezing Time Seen by Provider: 01/07/23 18:01 Source: patient Mode of arrival: ambulatory Limitations: no limitations History of Present Illness HPI Narrative: 62-year-old male with a history of asthma presented for complaint of wheezing for 1 week. He also endorses sinus pressure and congestion and occasional productive cough. He has been using his rescue inhaler along with nasal spray and nasal lavage. He has also been compliant with his scheduled QVAR. Denies cp, palpitations, sob, n/v/d/f/c. Related Data Home Medications Medication Instructions Recorded Confirmed amlodipine 10 mg tablet 10 mg PO DAILY 06/03/22 01/07/23 albuterol sulfate 90 mcg/actuation 2 puff inhalation Q6-8H PRN 08/05/22 01/07/23 aerosol inhaler Wheezing ipratropium 0.5 mg-albuterol 3 mg 3 ml inhalation Q6-8H PRN Wheezing 08/05/22 01/07/23 (2.5 mg base)/3 mL nebulization soln Allergies Allergy/AdvReac Type Severity Reaction Status Date / Time aspirin [From Marciano Aspirin] Allergy Unresponsiv Verified 01/07/23 17:45 e codeine Allergy Wheezing Verified 01/07/23 17:45 Review of Systems Review of Systems: CONSTITUTIONAL: Denies body aches, fever, chills, or sweats. EYES: Denies visual changes, redness, or discharge. ENT: Reports rhinorrhea, congestion, denies sore throat, or otalgia. CARDIOVASCULAR: Denies chest pain, palpitations, or edema. RESPIRATORY: Reports cough, wheezing. GASTROINTESTINAL: Denies abdominal pain, nausea, vomiting, or diarrhea. GENITOURINARY: Denies dysuria or hematuria. SKIN: Denies rash, itching, or wounds. MUSCULOSKELETAL: Denies back pain, joint pain, or myalgia. NEUROLOGIC: Denies headache, numbness, tingling, or weakness. All systems reviewed & are unremarkable except as noted in HPI and below PMFSH Past Medical History Medical History Asthma Hypertension Surgical History Surgical History No history of previous surgery Social History Social History Gender identity (if verbalized by the patient): Male Comments At time of signature, I have reviewed and agree with nursing past medical, surgical, social and family history unless otherwise noted. Please see nursing chart for further information. There is no relevant family history pertinent to the presenting complaint Exam Narrative: GENERAL: Well-appearing, in no acute distress. EYES: EOMI. No redness or drainage. Conjunctivae normal. ENT: Mucous membranes pink and moist. No rhinorrhea. TMs normal bilaterally. Throat normal. Uvula midline. NECK: Normal AROM. Supple. CHEST: No respiratory distress. Lungs diminished with exp Wheezing to all payton. HEART: Regular rate and rhythm. No murmur appreciated. ABDOMEN: Soft, nontender, nondistended EXTREMITIES: Normal range of motion. No edema. SKIN: Warm, dry, no rash. Capillary refill normal. Normal skin turgor. NEURO: Alert and oriented x3. Gait steady. PSYCH: Normal affect. Course Course Emergency Course: Patient is aware of diagnosis, understands and agrees to treatment plan. Anticipatory guidance given. Patient agrees to follow-up as directed and is aware of reasons to seek care at the emergency department. Portions of this record may have been created with voice recognition software Level of Care: Express Care Visit Vital Signs Vital signs: Vital Signs Temperature 98.3 F 01/07/23 17:48 Pulse Rate 80 01/07/23 17:48 Respiratory Rate 16 01/07/23 17:48 Blood Pressure 154/78 H 01/07/23 17:48 Pulse Oximetry 99 01/07/23 17:48 Temperature 98.3 F 01/07/23 17:48 Pulse Rate 80 01/07/23 17:48 Respiratory Rate 16 01/07/23 17:48 Blood Pressure 154/78 H 01/07/23 17:48 Pulse Oxim
[2023-01-07 17:48] VITALS: BP 154/78; PULSE 80; RESP 16; TEMP 36.8; O2SAT 99
== END 2023-01-07 18:22 | disposition home or self-care (01) ==
PROVIDERS: Emergency Provider Nurse Practitioner Family
DX: J40 Bronchitis, not specified as acute or chronic (principal); J45.909 Unspecified asthma, uncomplicated; I10 Essential (primary) hypertension
CPT/HCPCS: 99213; G0463

== ENCOUNTER 2023-12-31 09:16 | Emergency (ER) | payer BC, MEDICARE, SELFPAY ==
--- NOTE | ~2023-12-31 | XR_ITS ---
EXAMINATION: XR chest 2V DATE: 12/31/2023 09:48 INDICATION: Cough and wheezing. TECHNIQUE: Frontal and lateral views of the chest were obtained on 3 radiographs. COMPARISON: Chest 2 views 08/05/2022 FINDINGS: Calcified pulmonary nodules are consistent with old granulomatous disease. There is mild at electasis at right lung base. No pleural effusion or pneumothorax. The heart size is normal. IMPRESSION: 1. Mild atelectasis at right lung base. Reviewed, dictated and finalized at location A.
[2023-12-31 09:22] VITALS: BP 154/78; PULSE 68; RESP 16; TEMP 36.1; O2SAT 98
--- NOTE | 2023-12-31 09:37 | ED.URI ---
HPI - URI/Sore Throat General Chief Complaint: Upper Respiratory Infection Stated Complaint: WHEEZING/SOB Time Seen by Provider: 12/31/23 09:22 Source: patient, RN notes reviewed and old records reviewed Mode of arrival: ambulatory Limitations: no limitations History of Present Illness HPI Narrative: Patient presents today with a 2 week history of productive cough, wheezing, sinus pressure and congestion, headache, chest tightness. He has been using Mucinex, a nasal spray, and his nebulizer treatments. States the nebulizer treatments help for 6-7 hours at this time. The Mucinex and nasal spray have not been helping. History of asthma. He has not contacted his PCP. Patient has had several visits to [facility] for asthma exacerbations. Related Data Home Medications Medication Instructions Recorded Confirmed amlodipine 10 mg tablet 10 mg PO DAILY 06/03/22 01/07/23 albuterol sulfate 90 mcg/actuation 2 puff inhalation Q6-8H PRN 08/05/22 01/07/23 aerosol inhaler Wheezing ipratropium 0.5 mg-albuterol 3 mg 3 ml inhalation Q6-8H PRN Wheezing 08/05/22 01/07/23 (2.5 mg base)/3 mL nebulization soln Allergies Allergy/AdvReac Type Severity Reaction Status Date / Time aspirin [From Marciano Aspirin] Allergy Unresponsiv Verified 01/07/23 17:45 e codeine Allergy Wheezing Verified 01/07/23 17:45 Review of Systems Review of Systems: CONSTITUTIONAL: Denies body aches, fever, chills, or sweats. EYES: Denies visual changes, redness, or discharge. ENT: Denies rhinorrhea, sore throat, or otalgia.+ congestion, sinus pressure CARDIOVASCULAR: Denies chest pain, palpitations, or edema. RESPIRATORY: + cough, wheezing, chest tightness GASTROINTESTINAL: Denies abdominal pain, nausea, vomiting, or diarrhea. GENITOURINARY: Denies dysuria or hematuria. SKIN: Denies rash, itching, or wounds. MUSCULOSKELETAL: Denies back pain, joint pain, or myalgia. NEUROLOGIC: Denies numbness, tingling, or weakness.+ headache PSYCH: Denies depression or anxiety. PMFSH Past Medical History Medical History Asthma Hypertension Surgical History Surgical History No history of previous surgery Social History Social History Gender identity (if verbalized by the patient): Male Comments At time of signature, I have reviewed and agree with nursing past medical, surgical, social and family history unless otherwise noted. Please see nursing chart for further information. There is no relevant family history pertinent to the presenting complaint Exam Narrative: GENERAL: Well-appearing, well-nourished, and in no acute distress. HEAD: Normocephalic, atraumatic. EYES: EOMI. No redness or drainage. Conjunctivae normal. ENT: Mucous membranes pink and moist. Nares congested. No rhinorrhea. TMs normal bilaterally. Throat normal. Uvula midline. NECK: Normal AROM. Supple. No lymphadenopathy. CHEST: No respiratory distress. Inspiratory and expiratory wheezing. Able to speak in complete sentences. HEART: Regular rate and rhythm. No murmur appreciated. EXTREMITIES: Normal range of motion. No edema. SKIN: Warm, dry, no rash. Capillary refill normal. Normal skin turgor. NEURO: No focal deficits. Alert and oriented x3. Gait steady. PSYCH: Normal affect. No signs of depression or anxiety. Course Course Level of Care: Express Care Visit Vital Signs Vital signs: Vital Signs Temperature 97 F L 12/31/23 09:22 Pulse Rate 68 12/31/23 09:22 Respiratory Rate 16 12/31/23 09:22 Blood Pressure 154/78 H 12/31/23 09:22 Pulse Oximetry 98 12/31/23 09:22 Temperature 97 F L 12/31/23 09:22 Pulse Rate 68 12/31/23 09:22 Respiratory Rate 16 12/31/23 09:22 Blood Pressure 154/78 H 12/31/23 09:22 Pulse Oximetry 98 12/31/23 09:22 Oxygen De
== END 2023-12-31 10:13 | disposition home or self-care (01) ==
PROVIDERS: Emergency Provider Nurse Practitioner
DX: J45.901 Unspecified asthma with (acute) exacerbation (principal); J01.90 Acute sinusitis, unspecified; I10 Essential (primary) hypertension
CPT/HCPCS: 71046; 99213; G0463

== ENCOUNTER 2024-06-09 11:05 | Emergency (ER) | payer BC, MEDICARE, SELFPAY ==
--- NOTE | ~2024-06-09 | XR_ITS ---
Clinical Indication: Shortness of breath PA and lateral views of the chest: Comparison: 12/31/2023 Findings: The lungs are clear, without evidence of focal consolidation or pleural effusion. Cardiome diastinal silhouette is within normal limits. Bones and soft tissues are unremarkable. Impression: Normal chest. Reviewed, dictated and finalized at location . Impression: Normal chest.
--- NOTE | 2024-06-09 11:16 | ED.URI ---
HPI - URI/Sore Throat General Chief Complaint: Upper Respiratory Infection Stated Complaint: wheezing Time Seen by Provider: 06/09/24 11:17 Source: patient, RN notes reviewed and old records reviewed Mode of arrival: ambulatory Limitations: no limitations History of Present Illness HPI Narrative: Patient with asthma presents with 2-3 weeks of productive cough, more wheezing than normal. He reports that he has had some fatigue. He denies any fever, chills, sweats. He is not in any distress, including respiratory distress. Of note, blood pressure is elevated. Patient admits that he forgot to take his amlodipine this morning, agrees to take it when he gets home Related Data Home Medications Medication Instructions Recorded Confirmed amlodipine 10 mg tablet 10 mg PO DAILY 06/03/22 06/09/24 albuterol sulfate 90 mcg/actuation 2 puff inhalation Q6-8H PRN 08/05/22 06/09/24 aerosol inhaler Wheezing ipratropium 0.5 mg-albuterol 3 mg 3 ml inhalation Q6-8H PRN Wheezing 08/05/22 06/09/24 (2.5 mg base)/3 mL nebulization soln Allergies Allergy/AdvReac Type Severity Reaction Status Date / Time aspirin [From Marciano Aspirin] Allergy Unresponsiv Verified 06/09/24 11:13 e codeine Allergy Wheezing Verified 06/09/24 11:13 Review of Systems Review of Systems: All systems reviewed & are unremarkable except as noted in HPI and below Constitutional: Constitutional: Reports no additional constitutional complaints ENT: Reports system reviewed and no additional complaints, except as documented Cardiovascular: Cardiovascular: Reports no additional cardiovascular complaints Respiratory: Respiratory: Reports no additional respiratory complaints, Reports no additional respiratory complaints, Reports change in phlegm color, Reports chest congestion, Denies dyspnea and Reports wheezing Gastrointestinal: Gastrointestinal: Reports no additional gastrointestinal complaints [facility] Past Medical History Medical History Asthma Hypertension Surgical History Surgical History No history of previous surgery Social History Social History Gender identity (if verbalized by the patient): Male Comments At the time of my signature, I reviewed and agree with the nursing past medical, surgical, social, and family history. There is no relevant family history pertinent to the patient complaint. Exam Const: General: cooperative, no acute distress, alert and awake Orientation/consciousness: oriented to person, oriented to place and oriented to time HENMT: Head: normal to inspection Mouth: Yes moist mucous membranes Resp: Effort & Inspection: normal respiratory effort and able to speak in complete sentences Auscultation: clear to auscultation bilaterally, no crackles, no rales, no rhonchi, no wheezes and diminished lung sounds Cardio: Palpation: normal PMI Rate: regular rate Rhythm: regular rhythm Heart sounds: S1 normal heart sound present and S2 normal heart sound present Neuro: General: oriented to person, oriented to place and oriented to time Cranial nerves: Yes CN's II-XII intact bilaterally Psych: Appearance: grossly normal Thought process: Normal thought process present Insight: Good insight present (Psych) Judgement: Good judgement present (Psych) Course Course Level of Care: Express Care Visit Vital Signs Vital signs: Reviewed MDM - URI/Sore Throat MDM Narrative Medical decision making narrative: patient without wheeze on exam, no distress. Nontoxic appearing. Negative chest x-ray. Will prescribe steroid burst to mitigate symptoms, patient reports that he has plenty of inhaler and nebulizer medication. He agrees to take his blood pressure medicine when he gets home. Follow with primary care provider. Emergency department for new or worse symptoms
[2024-06-09 11:17] VITALS: BP 163/75; PULSE 65; RESP 16; TEMP 36.3; O2SAT 99
== END 2024-06-09 11:49 | disposition home or self-care (01) ==
PROVIDERS: Emergency Provider Nurse Practitioner Family
DX: J45.901 Unspecified asthma with (acute) exacerbation (principal); I10 Essential (primary) hypertension
CPT/HCPCS: 71046; 99213; G0463

== ENCOUNTER 2025-04-30 10:02 | Emergency (ER) | payer MEDICARE, SELFPAY ==
--- NOTE | ~2025-04-30 | XR_ITS ---
EXAMINATION: XR chest 2V 04/30/2025 11:07 INDICATION: Cough and wheezing PROCEDURE: 2 view chest COMPARISON: Comparison to multiple prior studies sequentially, with oldest reviewed study dated 07/25/2022. FINDINGS: The lungs are clear. The cardiomediastinal silhouette is within normal limits. There are no pleural effusions. There is no pneumothorax suspected. IMPRESSION: 1: NO ACUTE CARDIOPULMONARY DISEASE. Reviewed, dictated and finalized at location O.
[2025-04-30 10:10] VITALS: BP 163/80; PULSE 73; RESP 20; TEMP 36.3; O2SAT 100
--- NOTE | 2025-04-30 10:33 | ED_ITS ---
HPI - URI/Sore Throat General Chief Complaint: Upper Respiratory Infection Stated Complaint: Wheezing Time Seen by Provider: 04/30/25 10:33 Source: patient, RN notes reviewed and old records reviewed Mode of arrival: ambulatory Limitations: no limitations History of Present Illness HPI Narrative: 64-year-old male presents to the [facility] with complaints of 1 month of sinus congestion, ear pain, head congestion. Patient also reports a cough, intermittent shortness of breath. Has been using his inhaler, attempted to instruct patient proper way of using inhaler. Patient states that symptoms started over month ago. Has been treated on April 16 with Augmentin and prednisone, states that Augmentin never works for him States that whenever he had issues his ENT doctor, with prescribed doxycycline. Patient had sinus surgery about a year ago per patient. Related Data Home Medications ?Medication ?Instructions ?Recorded ?Confirmed ?Last Taken ?Type amlodipine 10 mg tablet 10 mg PO DAILY 06/03/2212/28 Unknown History albuterol sulfate 90 mcg/actuation 2 puff inhalation Q 6-8H PRN 08/05/22 06/09/24 Unknown History aerosol inhaler Wheezing ipratropium 0.5 mg-albuterol 3 mg 3 ml inhalation Q6-8 H PRN Wheezing 08/05/22 06/09/24 Unknown History (2.5 mg base)/3 mL nebulization soln Allergies Allergy/AdvReac Type Severity Reaction Status Date / Time aspirin (From Marciano Aspirin) Allergy Unresponsiv Verified 04/30/25 10:26 e codeine Allergy Wheezing Verified 04/30/25 10:26 Review of Systems Review of Systems: All systems reviewed & are unremarkable except as noted in HPI and below Constitutional: Constitutional: Reports no additional constitutional complaints ENT: Reports as per HPI Cardiovascular: Cardiovascular: Reports no additional cardiovascular complaints, Denies chest pain and Denies dyspnea Respiratory: Respiratory: Reports as per HPI, Denies chest congestion, Reports cough, Denies dyspnea and Reports wheezing Musculoskeletal: Musculoskeletal: Reports no additional musculoskeletal complaints Integumentary/Breasts: Skin/Breast: Reports system reviewed and no additional complaints, except as docu PMFSH Past Medical History Medical History Asthma Hypertension Surgical History Surgical History No history of previous surgery Social History Social History Gender identity (if verbalized by the patient): Male Comments At the time of my signature, I reviewed and agree with the nursing past medical, surgical, social, and family history. There is no relevant family history pertinent to the patient complaint. Exam Const: General: cooperative, healthy appearing, comfortable, no acute distress, well developed, alert and well nourished Nutritional Appearance: well nourished Orientation/consciousness: patient oriented x3 Limitations: no limitations HENMT: Head: normal to inspection Ears: hearing grossly normal bilaterally, external ears normal, TM's normal bilaterally, EAC's normal, mastoids normal and no periauricular adenopathy Mouth: Yes Normal oral and palatal mucosa present, Yes lip normal, Yes tongue normal and Yes moist mucous membranes Throat: posterior oropharynx normal, uvula midline and no uvular edema Eyes: General: appearance normal, both eyes and all related structures Alignment and Position: alignment normal Neck: Neck: normal visual inspection, full ROM, no lymphadenopathy and no meningeal signs Chest: Chest palpation & inspection: normal inspection of the chest Resp: Effort & Inspection: normal respiratory effort and able to speak in complete sentences Auscultation: clear to auscultation bilaterally (Throughout except left lower), no crackles, no rales, no rhonchi and wheezes (Left lower) expiratory wheezes Cardio: Rate: regular rate Skin: General skin exam: normal color and no rashes or lesions noted Neuro: General: patient oriented x3, gait normal, moves all extremities and no meningeal signs Cognition (Neuro): normal cognition Speech: normal speech Gait exam (Neuro): Normal gait present Extrem: General: normal to inspection, full ROM, capillary refill normal and normal gait Psych: Appearance: grossly normal and well kempt Mental Status: mental status grossly normal Speech and movement: Normal speech and movement present and Clear speech present Affect: normal affect Attitude: cooperative Course Course Level of Care: Express Care Visit Vital Signs Vital signs: Vital Signs Temperature 97.3 F L 04/30/25 10:10 Pulse Rate 73 04/30/25 10:10 Respiratory Rate 20 04/30/25 10:10 Blood Pressure 163/80 H 04/30/25 10:10 Pulse Oximetry 100 04/30/25 10:10 Oxygen Delivery Room Air 04/30/25 10:10 Temperature 97.3 F L 04/30/25 10:10 Pulse Rate 73 04/30/25 10:10 Respiratory Rate 20 04/30/25 10:10 Blood Pressure 163/80 H 04/30/25 10:10 Pulse Oximetry 100 04/30/25 10:10 Oxygen Delivery Room Air 04/30/25 10:10 Reviewed MDM - URI/Sore Throat MDM Narrative Medical decision making narrative: Patient sitting in exam room. Patient is nontoxic, vitals stable. Patient presents with 1 month history of URI symptoms. Patient's chest x-ray is negative. Has a history of asthma try to educate patient on proper use of albuterol. Patient is concerned that amoxicillin or Augmentin has never worked for him, requesting doxycycline. Stressed the importance of following up with his ENT doctor for further evaluation especially if the antibiotic does not work he may need to use other products as well. Discharge instructions reviewed with patient, as well as provided in writing per nursing staff. The instructions also include specific and strict return/GO TO THE ER as well as f/u information. All questions have been answered, and the patient deny any further questions with discharge and discharge plan. Some parts of this dictation were generated by voice recognition software and may contain typographical and/or grammatical inaccuracies. Differential Diagnosis Differential diagnosis: Likely upper respiratory infection, otitis media, sinusitis, viral infection, bronchitis, influenza and pharyngitis Imaging Data Radiologist's impression: EXAMINATION: XR chest 2V 04/30/2025 11:07 INDICATION: Cough and wheezing PROCEDURE: 2 view chest COMPARISON: Comparison to multiple prior studies sequentially, with oldest reviewed study dated 07/25/2022. FINDINGS: The lungs are clear. The cardiomediastinal silhouette is within normal limits. There are no pleural effusions. There is no pneumothorax suspected. IMPRESSION: 1: NO ACUTE CARDIOPULMONARY DISEASE. Critical Care Time Critical Care Time Critical Care Time: No Discharge Plan Discharge Clinical Impression: Upper respiratory infection Qualifiers: URI type: unspecified URI Qualified Code(s): J06.9 - Acute upper respiratory infection, unspecified Sinusitis Qualifiers: Sinusitis location: pansinusitis Chronicity: acute Recurrence: recurrent Qualified Code(s): J01.41 - Acute recurrent pansinusitis Patient Disposition: Home Condition: Stable Instructions: Antibiotic Form, Sinusitis (ED) Additional Instructions: Call and make an appointment with your ENT provider Today your chest x-ray was normal It is recommended that you use your nebulizer instead of your inhaler every 6 hours for the next 3 days. Follow-up with primary care provider today your blood pressure was 163/80. Take Claritin or Zyrtec every day Use Flonase twice daily for 1 week and then daily. Take Mucinex per package instructions Patient Language: Pashto Prescriptions: New doxycycline monohydrate 100 mg tablet 100 mg PO BID Qty: 14 0RF No Action amlodipine 10 mg Tablet 10 mg PO DAILY ipratropium-albuterol 0.5 mg-3 mg(2.5 mg base)/3 mL solution for nebulization 3 ml INHALATION Q6-8H PRN (Reason: Wheezing) albuterol sulfate 90 mcg/actuation HFA aerosol inhaler 2 puff INHALATION Q6-8H PRN (Reason: Wheezing) Follow-up/Referrals: PHYSICIAN,NURSE NAVIGATOR [Primary Care Provider, Internal Medicine] Stand Alone Forms: Work/School Release IP Time of Disposition: 11:12
== END 2025-04-30 11:23 | disposition home or self-care (01) ==
PROVIDERS: Emergency Provider Nurse Practitioner
DX: J06.9 Acute upper respiratory infection, unspecified (principal); J01.41 Acute recurrent pansinusitis; I10 Essential (primary) hypertension; J45.909 Unspecified asthma, uncomplicated
CPT/HCPCS: 71046; 99213; G0463